=== PATIENT | female | born 1990 | race Caucasian/White ===

== ENCOUNTER 2019-07-21 09:38 | Outpatient (CLI) | payer BC, SELFPAY ==
[2019-07-23 12:28] LABS: Kiwi Fruit IgE <0.35 kU/L
== END 2019-07-21 09:58 ==
PROVIDERS: PCP Internal Medicine; Visit Provider Otolaryngology Otolaryngology/Facial Plastic Surgery
DX: Z91.018 Allergy to other foods (principal)
CPT/HCPCS: 36415; 86003

== ENCOUNTER 2022-06-14 02:35 | Outpatient (CLI) | payer BC, SELFPAY ==
[2022-06-14 12:00] LABS: TSH (W/Ref FT4) 0.81 uIU/mL (0.36-3.74)
[2022-06-15 10:43] LABS: Varicella IgG Antibody Negative (See Note)
== END 2022-06-14 02:36 | disposition home or self-care (01) ==
LOC: LBO 02:35
PROVIDERS: PCP Internal Medicine; Visit Provider Advanced Practice Midwife
DX: Z34.91 Encounter for supervision of normal pregnancy, unspecified, first trimester (principal); Z3A.11 11 weeks gestation of pregnancy
CPT/HCPCS: 36415; 86787; 86850; 86900; 86901; 84443

== ENCOUNTER 2022-06-14 11:26 | Outpatient (REF) | payer BC, SELFPAY ==
[2022-06-14 11:54] LABS: *AMPHETAMINES SCREEN URINE Negative (Negative); *BARBITURATES SCREEN URINE Negative (Negative); *BENZODIAZEPINES SCREEN URINE Negative (Negative); Cannabinoids THC Negative (Negative); Cocaine Screen,Urine Negative (Negative); METHADONE URINE SCREEN Negative (Negative); OPIATES URINE SCREEN Negative (Negative)
[2022-06-14 11:56] LABS: Tricyclic Antidepressants Negative (Negative)
[2022-06-19 13:36] LABS: Buprenorphine Negative ng/mL (Cutoff: 5.0); Norbuprenorphine Negative ng/mL (Cutoff: 2.5)
== END 2022-06-14 11:27 | disposition home or self-care (01) ==
LOC: LBN 11:26
PROVIDERS: PCP Internal Medicine; Visit Provider Advanced Practice Midwife
DX: Z34.91 Encounter for supervision of normal pregnancy, unspecified, first trimester (principal); Z3A.11 11 weeks gestation of pregnancy
CPT/HCPCS: 80307

== ENCOUNTER 2022-06-28 20:10 | Outpatient (REF) | payer BC, SELFPAY ==
[2022-06-29 15:32] LABS: Chlamydia Result Negative (Negative); GC Result Negative (Negative)
== END 2022-06-28 20:11 | disposition home or self-care (01) ==
LOC: LBN 20:10
PROVIDERS: PCP Internal Medicine; Visit Provider Advanced Practice Midwife
DX: Z34.91 Encounter for supervision of normal pregnancy, unspecified, first trimester (principal); Z3A.13 13 weeks gestation of pregnancy
CPT/HCPCS: 87491; 87591

== ENCOUNTER 2022-10-04 01:45 | Outpatient (CLI) | payer BC, SELFPAY ==
[2022-10-04 14:51] LABS: HCT 35.3 % (36.0-46.0); HGB 11.8 g/dL (11.2-15.7); MCHC 33.4 % (32.0-36.0); MCV 93 fL (80-95); MPV 9.8 fL (8.0-11.0); Platelet Count 320 10^3/uL (130-400); RBC 3.81 10^6/uL (3.93-5.22); RDW 13.8 % (11.7-14.6); RDW-SD 46.2 fL; WBC 12.12 10^3/uL (4.4-10.8)
[2022-10-04 15:17] LABS: Glucose,1 Hr (Glucola) 136 mg/dL (80-140)
== END 2022-10-04 01:46 | disposition home or self-care (01) ==
LOC: LBO 01:45
PROVIDERS: PCP Internal Medicine; Visit Provider Advanced Practice Midwife
DX: Z34.93 Encounter for supervision of normal pregnancy, unspecified, third trimester (principal); Z3A.27 27 weeks gestation of pregnancy
CPT/HCPCS: 36415; 82950; 85027

== ENCOUNTER 2022-12-06 11:44 | Outpatient (CLI) | payer BC, SELFPAY ==
[2022-12-06 13:51] LABS: *AMPHETAMINES SCREEN URINE Negative (Negative); *BARBITURATES SCREEN URINE Negative (Negative); *BENZODIAZEPINES SCREEN URINE Negative (Negative); Cannabinoids THC Negative (Negative); Cocaine Screen,Urine Negative (Negative); METHADONE URINE SCREEN Negative (Negative); OPIATES URINE SCREEN Negative (Negative)
[2022-12-06 13:53] LABS: Tricyclic Antidepressants Negative (Negative)
[2022-12-15 15:22] LABS: Buprenorphine Negative ng/mL (Cutoff: 5.0); Norbuprenorphine Negative ng/mL (Cutoff: 2.5)
== END 2022-12-06 11:45 | disposition home or self-care (01) ==
LOC: LBO 11:44 → LBN 12:49
PROVIDERS: PCP Internal Medicine; Visit Provider Advanced Practice Midwife
DX: Z34.93 Encounter for supervision of normal pregnancy, unspecified, third trimester (principal); Z36.85 Encounter for antenatal screening for Streptococcus B; Z3A.36 36 weeks gestation of pregnancy
CPT/HCPCS: 80307; 80348; 87081

== ENCOUNTER 2022-12-19 19:20 | Inpatient (IN) | payer BC, SELFPAY ==
[2022-12-19] VITALS (7 sets, daily range): BP systolic 111–135; BP diastolic 49–75; PULSE 93–118; TEMP 36.8
--- NOTE | 2022-12-19 19:34 | HPE_ITS ---
Date of service: 12/19/22 Time of Service: 19:34 Assessment and Plan Assessment and plan (1) Normal labor: Status: Acute Assessment and plan: 1. admit, CBC, type and screen, COVID test 2. initial tracing then doppler through labor if tracing is reassuring 3. support normal labor and , expect NVD. Viki OB-HPI Labor/Delivery History of Present Illness Reason for Visit: Term Labor Chief Complaint: Uterine Contractions. FLOYD Calculator Estimated Delivery Date Method Current WG Current Estimate 12/30/22 LMP (Certain) 38w 3d Other Estimates 12/28/22 Ultrasound #1 38w 5d History of Present Expected Delivery Route/Plan - CNM FOB/ - Puma Desir BB yes to circ Desires to be active in labor & use tub, maybe waterbirth Labor support - Her mother Megan. Varicella Non-Immune, offer vaccine GBS negative Specific Issues/Plan 1. Known CF neg 09/02/2018, declines cfDNA & AFP screening. 2. Negative experience first , desires low intervention & empowerment/decision-making 2a. Delivery note scanned in record, mirrors pt description closely 3. Hx PPD 6 months after . No meds or therapy. 4. Ulcerative colitis, managed with diet and exercise 5. Undecided about : did not last time d/t increased anxiety 5a. Does not want to put baby to breast, will pump/bottlefeed and formula feed 6. Left sciatica pain, referred to PT 07/26/22- symptoms improved prior to PT 7. Pap 04/19/21 [facility] 8. 1-hr GTT 136- 3-hr GTT at [facility]=nml Assessment: History Reviewed & Current Narrative: Xiao presents in active labor. She states contractions began to be more intense and frequent at 1730 today. Denies ROM or show. Reports baby has been active. Plans natural labor with minimal intervention, might use nitrous. uncomplicated. Review of Systems All systems reviewed & are unremarkable except as noted in HPI and below PFSH All Active Problems (Updated 12/19/22 @ 19:41 by Misti Toribio CNM) Normal labor (Acute) Sciatica of left side (Acute) (Acute) Ulcerative colitis (Chronic) Allergic rhinitis due to allergen (Acute) Food allergy (Acute) Chronic rhinitis (Acute) Medical History History of PROM (premature rupture of membranes), currently Post-nasal drip Social History Smoking risk assessment performed?: No History History 3 Para 1 Hx # Term Pregnancies 1 Multiple births 0 Hx # Pregnancies 0 Ectopic pregnancies 0 AB induced 0 Hx Number of Living Children 1 AB spontaneous 1 Past Pregnancies Del. Date GA/Weeks # Preg Succ Route Wgt Sex Labor Lgth Anesth esia Location Prov Complic 02/01/19 39 No Yes vaginal 6 lb 15 oz Male 31 regional M D at [facility] other Delivery Date: 02/01/19 Last Updated by: Misti Lyn CNM IOL for PROM w/pitocin, used tub & nitrous, epidural @ 8 cm, 3 hrs pushing, VAVD. PPD onset @ 6 months. Frank Meds Allergies and Home Medications Allergies Allergy/AdvReac Type Severity Reaction Status Date / Time Histamine H2 Inhibitors Allergy Mild Other (See Verified 12/19/22 19:39 Comment) kiwi Allergy Mild Uncoded 12/19/22 19:39 peach Allergy Mild Uncoded 12/19/22 19:39 Home Medications Medication Instructions Recorded Confirmed Type cetirizine 10 mg capsule (Zyrtec) 10 mg PO DAILY PRN 05/09/22 12/15/22 History vits no.126-ferrous fum 1 tab PO DAILY 05/09/22 12/15/22 History 28 mg iron-folic acid 800 mcg tablet (Classic ) triamcinolone acetonide 55 mcg 1 spray intranasal DAILY PRN 05/09/22 12/15/22 History nasal spray aerosol (Nasacort Allergy) Exam Constitutional Constitutional: mild distress and average body habitus Detailed Labor and Delivery Exam Dilation: 7 Effacement (%): 100 station: -2 Cervix position: mid Consistency: soft Montiel Score: Cervical Points Exam 0 1 2 3 Dilation Closed 1-2cm 3-4 cm 5-6cm Effacement 0-30% 40-50% 60-70% 80% Consistency Firm Medium Soft Station -3 -2 -1,0 +1,+2 Position Posterior Mid Anterior MONTIEL Score(Cervical Ripeness Score): 10 Amniotic Membrane Status: Intact Contraction Frequency(min): 2-3 Contraction Duration(sec): 60-80 Contraction Intensity: Moderate/Strong Fetus A Heart Rate Baseline: 120 Monitor Accelerations: 15 X 15 Monitor Decelerations: None Variability: Moderate (6-25 BPM) Categories: Category I Est. Weight: 7 lb HEENT Exam HEENT Exam: Normal Neck Exam Neck Exam: Normal (normal visual exam) Chest/Brest/Axilla Exam Chest Exam: Not Done Breast Exam Breast Exam: Not Done Respiratory Exam Respiratory Exam: Normal Cardiovascular Exam Cardiovascular Exam: Normal Abdominal Exam Abdominal Exam: Normal (gravid, size equals dates) Rectal Exam Rectal Exam: Not Done Exam Exam: Normal Extremities Exam Extremities Exam: Normal Back/Spine/Pelvis Exam Back Exam: Not Done Pelvis Adequate: Yes Skin Exam Skin Exam: Normal Neurological Exam Neurological Exam: Normal Psychiatric Exam Psychiatric Exam: Normal Results Results Group Beta Strep: Negative Blood Type: A+ Rubella Status: Immune Varicella Immunity: Nonimmune Lab Results: GC CT neg/HIV neg/Hep B&C neg/Syphilis neg/ 1 hour 136, 3 hour F77,1h123,2h110,3h46, CF neg, declined cfDNA and or SMA Risk Assessment Risk for Shoulder Dystocia Historical/Initial OB: NEGATIVE FOR: Pelvic Abnormality, Pre- BMI>30, Previous Shoulder Dystocia or Previous Macrosomia Increased Risk?: No Delivery Plan @ 40 wks: NVD. DREW Risk for Pre-Eclampsia Date Initiated/Initials: not indicated, jk Yes, if one or more: NEGATIVE FOR: Hx Pre-E/Gest HTN, Chronic HTN, Multiple Gestation, Pre-gestational DM, Renal Disease, Systemic Lupus or APA Syndrome Yes, if 2 or more: NEGATIVE FOR: Nulliparity, Age>= 35 yrs, >10yr btwn pregnancies, BMI>30, ethinicty, Mother/Sister w/ Pre-E or Previous IUGR Risk for Post- Hemorrhage Initial: NEGATIVE FOR: Multiple Gestation, Previous PPH, Known Clotting Deficiency, Grand Multiparity or Anticoagulation Counseled re: Active Management: Yes Date/Initials: 12/19/22 VIKI Risks Reviewed Risks Reviewed Upon Admission: Yes
[2022-12-19 19:42] LABS: Source Nasal/Nares
[2022-12-19 19:58] LABS: HCT 38.4 % (36.0-46.0); HGB 13.3 g/dL (11.2-15.7); MCH 31.7 pg (27.0-33.0); MCHC 34.6 % (32.0-36.0); MCV 92 fL (80-95); MPV 10.6 fL (8.0-11.0); Platelet Count 269 10^3/uL (130-400); RBC 4.19 10^6/uL (3.93-5.22); RDW 13.8 % (11.7-14.6); WBC 14.18 10^3/uL (4.4-10.8)
[2022-12-19 20:13] LABS: COVID-19 PCR Negative (Negative)
[2022-12-19] MEDS: Oxytocin 10 UNITS/ML VIAL IM (21:41)
--- NOTE | 2022-12-19 22:45 | W.OBDELIVERY ---
Date of service: 12/19/22 Time of Service: 22:46 OB Labor/ Delivery Information Baby A Delivery Delivery Method: Spontaneaous Presentation: Cephalic Cephalic Position: Vertex Vertex Position: Right Occipital Anterior Cord Description-Baby A: 3 Vessels and Clamped/Cut Amniotic Fluid: Meconium (light and non particulate) Estimated Blood Loss: 300 Delivery Outcome: Liveborn Complications: none Transferred: Remains with Mother Note: Xiao progressed quickly after ROM at 1845 (thin non particulate meconium) to 10 cm and began to feel urge to push at 1925. Second stage huddle was held, FHR WNL by doppler. With much encouragement and position changes as well as nitrous oxide use she was able to deliver her live born son at 2138 over intact perineum. Placenta delivered delivered at 2143, spontaneously, intact. Fundus firmed to U with massage and IM pitocin. EBL 300 cc. Baby 8/8. Weight is pending. They plan circumcision. Mother and baby are in satisfactory condition. Expect normal PP course. [facility] Nurse Parliamentary Archivist: Misti Toribio Nurse: Melida Kumar Nurse: Alicia Narvaez Labor/Delivery Information Number of Babies in Womb: 1 Steroids Given: None Reason Steroids Not Administered: N/A Group Beta Strep: Negative Antibiotics Administered: No Number of Doses of Antibiotics: 0 Rubella Status: Immune Blood Type: A+ Varicella Immunity: Nonimmune Medication in Delivery: Oxytocin Maternal Complications: None Shoulder Dystocia: No Stages of Labor Onset of Labor Date: 12/19/22 Onset of Labor Time: 17:30 Complete Dilatation Date: 12/19/22 Complete Dilatation Time: 19:25 Labor - Stage 1 Duration: 1 hours and 55 minutes ROM Baby A: 12/19/22 ROM Baby A: 18:45 ROM Total Time- Baby A: [id number] Infant Delivery Date-Baby A: 12/19/22 Delivery Time-Baby A: 21:39 Labor Stage 2 Duration: 2 hours and 14 minutes Placenta Delivery Date-Baby A: 12/19/22 Placenta Delivery Time-Baby A: 21:44 Labor-Stage 3 Duration: 5 minutes Total Length of Labor-Baby A: 4 hours and 9 minutes Placenta Cultured: No Placenta Status: Delivered Baby A Infant Gender: Male Gestational Status: Term (39-41.6 wks) Gestational Age in Weeks/Days: 38 Weeks and 3 Days Score-1 Minute Interval(Baby A) Heart Rate-1 minute: 100 BPM or Greater Respiratory Effort- 1 minute: Spontaneous/Strong Cry Muscle Tone-1 minute: Active Movement Reflex Response-1 minute: Prompt Response Color-1 minute: Pallor or Cyanosis Total Score-1 minute: 8 Score-5 Minute Interval(Baby A) Heart Rate- 5 minute: 100 BPM or Greater Respiratory Effort-5 minute: Spontaneous/Strong Cry Muscle Tone-5 minute: Active Movement Reflex Response-5 minute: Prompt Response Color-5 minute: Pallor or Cyanosis Total Score- 5 minute: 8 Shoulder Dystocia Delivery Times Date of Delivery of Head: 12/19/22 Time of Delivery of the Head: 21:39 Verify No Fundal Pressure Applied Fundal Pressure: No Pressure Applied
[2022-12-19] MEDS: Acetaminophen 325 MG TAB 650 MG PO (23:06)
[2022-12-19] MEDS: Ibuprofen 600 MG TAB PO (23:06)
[2022-12-19] MEDS: Hamamelis Leaf/Glycerin 100 EACH BOX PR (23:07)
[2022-12-19] MEDS: Dibucaine 1% 28 GM TUBE TP (23:08)
[2022-12-20] MEDS: Acetaminophen 325 MG TAB 650 MG PO ×3 (06:16→18:09)
[2022-12-20] MEDS: Ibuprofen 600 MG TAB PO ×3 (06:17→18:09)
--- NOTE | 2022-12-20 07:40 | W.PM.OBPNV1 ---
Date of service: 12/20/22 Time of Service: 07:40 Assessment and Plan Assessment and plan (1) care following vaginal delivery: Status: Acute Assessment and plan: 1. Continue present mangement 2. Undecided on contraception 3. Plan discharge tomorrow (2) Lactating mother: Status: Acute Assessment and plan: 1. continue present management, will work with to develop feeding plan. Subjective Subjective Interval history: Is feeling well. Out of bed doing own ADL's. Plans to go home tomorrow. Is pumping and breast feeding baby. baby status: Doing well and Rooming in feeding status: Pumping and bottle feeding Exam Physical Exam Vital signs: Temp Pulse BP 98.2 F 93 H 125/63 12/19/22 20:04 12/19/22 23:57 12/19/22 23:57 Vital Signs Reviewed: Yes Constitutional Constitutional: no acute distress, average body habitus and cooperative HEENT Exam HEENT Exam: Normal Neck Exam Neck Exam: Normal (normal visual inspection) Breast Exam normal: Breast Exam: Normal Nipple Exam: Normal Respiratory Exam Respiratory Exam: Normal Cardiovascular Exam Cardiovascular Exam: Normal Abdominal Exam Abdomen: Other (normal exam) Fundal Exam Fundus: Below Umbilicus and Firm Comment: small lochia noted. Rectal Exam Rectal Exam: Not Done Exam Perineum: Intact and Normal Extremities Exam Extremity Exam: Normal (denies calf tenderness) and Full ROM Back/Spine/Pelvis Exam Back Exam: Normal Skin Exam Skin Exam: Normal Neurological Exam Neurological Exam: Normal Psychiatric Exam Psychiatric Exam: Normal Results Hemoglobin/Hematocrit: Hgb 13.3 g/dL (11.2-15.7) 12/19/22 19:45 Hct 38.4 % (36.0-46.0) 12/19/22 19:45 Abnormal Lab Findings: Abnormal Labs 12/19/22 19:45 WBC 14.18 H
[2022-12-20 08:00] VITALS: BP 122/84; PULSE 71; RESP 18; TEMP 36.6; O2SAT 99
[2022-12-20 20:01] VITALS: BP 124/80; PULSE 94; TEMP 36.5
[2022-12-21] MEDS: Ibuprofen 600 MG TAB PO (00:08)
[2022-12-21] MEDS: Acetaminophen 325 MG TAB 650 MG PO (00:09)
[2022-12-21 08:45] VITALS: BP 123/80; PULSE 98; RESP 16; TEMP 36.5
--- NOTE | 2022-12-21 09:08 | DSE_ITS ---
Date of service: 12/21/22 Time of Service: 09:08 DS: Diagnosis Discharge Diagnosis (1) care following vaginal delivery: Status: Acute Asessment and Plan: Caring for baby independently. Pain is managed well with oral analgesics. Voiding without difficulty. well. She passed a duck egg sized clot yesterday with some membranes. A - stable mother and baby , Post day 2. Discharge today P - Discharge to home. Routine post instructions. [facility]. (2) Lactating mother: Status: Acute Asessment and Plan: Xiao is pumping and feeding as well as latching. She is receiving information and guidance from the nurses. Discharge Plan Disposition Patient Disposition: Home Condition: Good Discharge Details Reason For Visit: Term Labor Admit Date/Time: 12/19/22 19:20 Admit Provider: Misti Toribio Attending Provider: Misti Toribio Primary Care Provider: Randa Burns Home Meds and New Rx's Prescriptions: Continued Classic 28 mg iron- 800 mcg tablet 1 tab PO DAILY Zyrtec 10 mg capsule 10 mg PO DAILY PRN triamcinolone acetonide [Nasacort Allergy] 55 mcg aerosol,spray 1 spray intranasal DAILY PRN Rx Instructions: administer into each nostril Discharge Instructions Stand Alone Forms: BC Instructions, BC Post Vaginal Deliver Activity:: Activity as Tolerated Equipment/Supplies:: No Equipment Needed Diet:: As Tolerated Discharge Orders Discharge Orders: Discharge Order (Routine); Ordered 12/21/22 Ordered By: Misti Lyn OB:DS Summary Summary Vaginal Delivery Method: Spontaneaous Episiotomy Description: None Laceration Description: None Laceration Extension: N/A Contraception Discussed Contraception Discussed: Yes Contraceptive Plan: Undecided, Infant Gender-Baby A: Male weight: 7 lb 4.228 oz Status at Discharge Functional status at discharge: independent ambulation Overall status at discharge: patient is back to baseline Mental Status: mental status grossly normal Speech and Movement: speech and movement normal Mood: congruent mood Affect: normal affect Exam Physical Exam Vital signs: Temp Pulse Resp BP Pulse Ox 97.7 F 98 H 16 123/80 99 12/21/22 08:45 12/21/22 08:45 12/21/22 08:45 12/21/22 08:45 12/20/22 08:00 Respiratory Exam Respiratory Exam: Normal Cardiovascular Exam Cardiovascular Exam: Normal Fundal Exam Fundus: Below Umbilicus and Firm Exam Comments: intact perineum Extremities Exam Extremity Exam: Normal Skin Exam Skin Exam: Normal Psychiatric Exam Psychiatric Exam: Normal (denies depression history) PFSH All Active Problems (Updated 12/20/22 @ 07:43 by Misti Toribio CNM) Lactating mother (Acute) care following vaginal delivery (Acute) Sciatica of left side (Acute) Ulcerative colitis (Chronic) Allergic rhinitis due to allergen (Acute) Food allergy (Acute) Chronic rhinitis (Acute) Medical History (Updated 12/20/22 @ 07:43 by Misti Toribio CNM) History of PROM (premature rupture of membranes), currently Normal labor Post-nasal drip Social History Smoking risk assessment performed?: No Do you feel safe at home: Yes Do you feel safe in your relationship?: Yes History History 3 Para 1 Hx # Term Pregnancies 1 Multiple births 0 Hx # Pregnancies 0 Ectopic pregnancies 0 AB induced 0 Hx Number of Living Children 1 AB spontaneous 1 Past Pregnancies Del. Date GA/Weeks # Preg Succ Route Wgt Sex Labor Lgth Anesth esia Location [facility] 02/01/19 39 No Yes vaginal 6 lb 15 oz Male 31 regional M D at [facility] other Delivery Date: 02/01/19 Last Updated by: Misti Lyn CNM IOL for PROM w/pitocin, used tub & nitrous, epidural @ 8 cm, 3 hrs pushing, VAVD. PPD onset @ 6 months. Frank DS: Data Vitals/I&O Vitals and I&O: Vital Signs Temperature 97.7 F 12/21/22 08:45 Pulse 98 H 12/21/22 08:45 Pulse Rhythm Regular 12/20/22 20:01 Respiratory Rate 16 12/21/22 08:45 Blood Pressure 123/80 12/21/22 08:45 Blood Pressure Mean 94 12/21/22 08:45 Pulse Oximetry 99 12/20/22 08:00 Oxygen Delivery Method Room Air 12/19/22 20:04 Oxygen Flow Rate 0 12/19/22 20:04 Pain Level 4 12/20/22 06:16 Intake & Output 12/20/22 12/20/22 12/21/22 11:59 23:59 11:59 Output Total 200 / 400 200 / 400 Balance -200 / -400 -200 / -400 Output: Urine 200 / 400 200 / 400 Other: Urine Color Dark Red Dark Red Urine Appearance Clear Urine Odor None None Comment Patient passed a large clot. RN had CNM come in and take a look at the clot Patient passed a large clot. RN had CNM come in and take a look at the clot Voiding Methods Toilet
== END 2022-12-21 14:20 | disposition home or self-care (01) | DRG 806 ==
PROVIDERS: Admitting Provider Advanced Practice Midwife; PCP Internal Medicine; Visit Provider Advanced Practice Midwife
DX: O99.62 Diseases of the digestive system complicating childbirth (principal); K51.90 Ulcerative colitis, unspecified, without complications; Z37.0 Single live birth; O77.0 Labor and delivery complicated by meconium in amniotic fluid; Z3A.38 38 weeks gestation of pregnancy; M54.32 Sciatica, left side; O99.52 Diseases of the respiratory system complicating childbirth; J30.89 Other allergic rhinitis
CPT/HCPCS: 36415; 85027; 86850; 86900; 86901; 87635; J2590

== ENCOUNTER 2023-01-29 15:03 | Outpatient (REF) | payer BC, SELFPAY ==
--- NOTE | 2023-01-29 10:55 | PAPFT_PTH ---
PATIENT: Xiao Desir LOC: [facility] U#:[id number] AGE/SX: 33/F ROOM: RE01/29/[address]: Misti Toribio CNM : 1990 BED: DIS: 01/29/2023 SPEC #: [id number] RECD: 01/29/23 18:16 STATUS: CLAUDIO REQ #: [id number] MARIJA: 01/29/23 10:[address]: Misti Toribio DEPT: [facility] Cytology RECD BY: Cintia Valero ENTERED: 01/29/23 18:16 SP TYPE: PAPFT OTHR DR: Randa Burns Tissues: 1 - CX/ENDOCX FOR PAP SMEARS Procedures: PAP THIN PREP/UVM Screening HPV DNA PROBE Comments: [id number]
== END 2023-01-29 15:04 | disposition home or self-care (01) ==
LOC: LBN 15:03
PROVIDERS: PCP Internal Medicine; Visit Provider Advanced Practice Midwife
DX: Z12.4 Encounter for screening for malignant neoplasm of cervix (principal); Z11.51 Encounter for screening for human papillomavirus (HPV)
CPT/HCPCS: 88142; 87624

== ENCOUNTER 2023-06-06 10:02 | Outpatient (REF) | payer BC, SELFPAY | END 2023-06-06 10:03 | disposition home or self-care (01) | LOC: LBN 10:02 | PROVIDERS: PCP Internal Medicine; Visit Provider Advanced Practice Midwife | DX: N89.8 Other specified noninflammatory disorders of vagina (principal) | CPT/HCPCS: 87480; 87510; 87660 ==

== ENCOUNTER 2025-07-27 10:49 | Outpatient (REF) | payer BC, SELFPAY ==
[2025-07-28 14:10] LABS: Chlamydia Result Negative (Negative); GC Result Negative (Negative)
== END 2025-07-27 10:50 | disposition home or self-care (01) ==
LOC: LBN 10:49
PROVIDERS: PCP Internal Medicine; Visit Provider Obstetrics & Gynecology
DX: N94.6 Dysmenorrhea, unspecified (principal)
CPT/HCPCS: 87491; 87591